=== PATIENT | male | born 1975 | race Caucasian/White ===

== ENCOUNTER 2022-10-22 10:00 | Outpatient (RCR) | payer OTHER, SELFPAY | END 2023-01-15 10:54 | disposition home or self-care (01) | PROVIDERS: PCP Family Medicine; Visit Provider Orthopaedic Surgery Sports Medicine | DX: M67.911 Unspecified disorder of synovium and tendon, right shoulder (principal); G25.89 Other specified extrapyramidal and movement disorders; Z51.89 Encounter for other specified aftercare | CPT/HCPCS: 97110; 97140; 97161 ==

== ENCOUNTER 2022-11-24 08:29 | Outpatient (CLI) | payer OTHER, SELFPAY ==
[2022-11-24 09:48] LABS: Chloride* 102 mmol/L (96-114)
[2022-11-24 09:49] LABS: Albumin* 4.8 g/dL (3.3-5.0); Sodium* 139 mmol/L (135-149)
[2022-11-24 09:50] LABS: Potassium* 4.5 mmol/L (3.6-5.1)
[2022-11-24 09:51] LABS: Carbon Dioxide* 30 mmol/L (20-32); Cholesterol* 266 mg/dL (90-199)
[2022-11-24 09:52] LABS: Alanine Aminotransferase* 32 U/L (4-50); Alkaline Phosphatase* 68 U/L (40-150); Aspartate Amino Transferase* 37 U/L (12-35); Bilirubin Total* 1.6 mg/dL (0.1-1.5); Blood Urea Nitrogen* 18 mg/dL (5-24); Calcium* 9.7 mg/dL (8.4-10.6); Creatinine* 0.8 mg/dL (0.5-1.5); Estimated Glomerular Filt Rate 111 ml/min; Glucose* 102 mg/dL (60-115); Total Protein* 7.5 g/dL (6.0-8.3); Triglycerides* 134 mg/dL (40-149)
[2022-11-24 09:53] LABS: HDL Cholesterol* 98 mg/dL (>=40); LDL Cholesterol Calculated 141 mg/dL (<100)
== END 2022-11-24 08:30 | disposition home or self-care (01) ==
PROVIDERS: PCP Family Medicine; Visit Provider Family Medicine
DX: Z00.00 Encounter for general adult medical examination without abnormal findings (principal); E78.5 Hyperlipidemia, unspecified; F41.9 Anxiety disorder, unspecified
CPT/HCPCS: 80053; 80061

== ENCOUNTER 2023-01-26 07:39 | Outpatient (CLI) | payer OTHER, SELFPAY | END 2023-01-26 07:40 | disposition home or self-care (01) | LOC: NFLDREF 14:57 | PROVIDERS: PCP Family Medicine; Referring Provider Family Medicine; Visit Provider Family Medicine | DX: I10 Essential (primary) hypertension (principal); E78.5 Hyperlipidemia, unspecified; R03.0 Elevated blood-pressure reading, without diagnosis of hypertension; F41.9 Anxiety disorder, unspecified; F32.A Depression, unspecified | CPT/HCPCS: 80053; 80061 ==

== ENCOUNTER 2024-03-14 10:18 | Outpatient (CLI) | payer OTHER, SELFPAY | END 2024-03-14 10:19 | disposition home or self-care (01) | LOC: NFLDREF 04-02 21:42 | PROVIDERS: PCP Family Medicine; Referring Provider Family Medicine; Visit Provider Family Medicine | DX: E78.5 Hyperlipidemia, unspecified (principal); R73.09 Other abnormal glucose | CPT/HCPCS: 80053; 80061 ==

== ENCOUNTER 2024-04-05 08:18 | Outpatient (CLI) | payer OTHER, SELFPAY | END 2024-04-05 08:19 | disposition home or self-care (01) | LOC: NFLDREF 04-09 11:59 | PROVIDERS: PCP Family Medicine; Referring Provider Family Medicine; Visit Provider Family Medicine | DX: I10 Essential (primary) hypertension (principal) | CPT/HCPCS: 80048 ==

== ENCOUNTER 2024-05-02 07:47 | Outpatient (CLI) | payer OTHER, SELFPAY ==
--- NOTE | 2024-05-02 08:45 | W.ANESCHARGE ---
Anesthesia Charges Start Date/Time Anesthesia Start Date: 05/02/24 Anesthesia Start Time: 08:42 Stop Date/Time Anesthesia Stop Date: 05/02/24 Anesthesia Stop Time: 09:05
--- NOTE | 2024-05-02 09:07 | W.ANESCHARGE ---
Anesthesia Charges Start Date/Time Anesthesia Start Date: 05/02/24 Anesthesia Start Time: 08:42 Stop Date/Time Anesthesia Stop Date: 05/02/24 Anesthesia Stop Time: 09:05
== END 2024-05-02 07:48 | disposition home or self-care (01) ==
LOC: OP CLINIC 07:47
PROVIDERS: PCP Family Medicine; Visit Provider Internal Medicine
DX: Z12.11 Encounter for screening for malignant neoplasm of colon (principal); K63.5 Polyp of colon
CPT/HCPCS: 00811; 45385; 88305; J2704

== ENCOUNTER 2024-05-30 12:35 | Outpatient (CLI) | payer OTHER, SELFPAY ==
[2024-05-30 13:35] VITALS: BP 132/70; PULSE 98
--- NOTE | 2024-05-30 14:59 | W.PM.STED ---
Stress Test Note Date Date of test: 05/30/24 Providers Referring provider: Martinez Fung Primary care provider: Areli Jacob Stress test physician: Prudencio Yeh Stress Test Note Stress test ordered: Stress Echo Indication for test: Abnormal findings on CT scan. Results discussion: This pleasant gentleman presents with the above history, cardiac stress test medical history report is reviewed. He presents here with his significant other, he had an abnormally high CT scan that showed a calcium score of 400. He is referred by Cardiology for the above test, discussion of the risks benefits and side effects is done. He accepts these like to proceed, pretest EKG shows normal sinus rhythm with a ventricular rate of 75 and a blood pressure 156/96. Standard Dre protocol is employed over a time course of 13 minutes, metabolic equivalent of 13.3 Mets. With a maximum heart rate of 163. Target predicted is 110%. Test is terminated because of fulfillment of protocol, during this test there is no appreciable ST wave changes suggestive of ischemia, there is no dysrhythmias, conditioning was felt to be excellent, Impression: Negative electrographic portion of stress echo, negative a subjectively Follow up suggested: Await echo images, clinical correlation with this will be needed, patient did well, left this testing facility in excellent condition.
== END 2024-05-30 12:36 | disposition home or self-care (01) ==
LOC: STRESS 12:35
PROVIDERS: PCP Family Medicine; Visit Provider Internal Medicine Cardiovascular Disease
DX: R93.1 Abnormal findings on diagnostic imaging of heart and coronary circulation (principal); Z82.49 Family history of ischemic heart disease and other diseases of the circulatory system
CPT/HCPCS: 93016; 93325; 93351

== ENCOUNTER 2024-06-16 08:34 | Outpatient (CLI) | payer OTHER, SELFPAY | END 2024-06-16 08:35 | disposition home or self-care (01) | LOC: NFLDREF 06-20 20:12 | PROVIDERS: PCP Family Medicine; Referring Provider Family Medicine; Visit Provider Family Medicine | DX: R79.89 Other specified abnormal findings of blood chemistry (principal); I10 Essential (primary) hypertension; R74.01 Elevation of levels of liver transaminase levels | CPT/HCPCS: 80053; 82977; 84443 ==

== ENCOUNTER 2025-06-06 08:20 | Outpatient (CLI) | payer OTHER, SELFPAY | END 2025-06-06 08:21 | disposition home or self-care (01) | LOC: NFLDREF 06-10 14:37 | PROVIDERS: PCP Family Medicine; Referring Provider Family Medicine; Visit Provider Family Medicine | DX: E78.5 Hyperlipidemia, unspecified (principal); I10 Essential (primary) hypertension; R73.9 Hyperglycemia, unspecified; Z12.5 Encounter for screening for malignant neoplasm of prostate | CPT/HCPCS: 80053; 80061; G0103 ==